=== PATIENT | female | born 1995 | race Two or more races ===

== ENCOUNTER 2016-12-01 00:18 | Emergency (ER) | payer SELFPAY ==
[~2016-12-01] VITALS: Ht 157.5 cm; Wt 74.9 kg
[2016-12-01 00:22] VITALS: BP 123/83
== END 2016-12-01 03:26 | disposition home or self-care (01) ==
LOC: ED 03:02
DX: H10.32 Unspecified acute conjunctivitis, left eye (principal); J02.9 Acute pharyngitis, unspecified
CPT/HCPCS: 99283

== ENCOUNTER 2017-05-29 18:58 | Emergency (ER) | payer SELFPAY ==
[~2017-05-29] VITALS: Ht 157.5 cm; Wt 74.1 kg
[2017-05-29 19:03] VITALS: BP 132/84
== END 2017-05-29 19:55 | disposition home or self-care (01) ==
LOC: ED 19:35
DX: K08.89 Other specified disorders of teeth and supporting structures (principal)
CPT/HCPCS: 99283

== ENCOUNTER 2017-11-21 14:02 | Inpatient (IN) | payer OTHER ==
[~2017-11-21] VITALS: Ht 157.5 cm; Wt 90.1 kg
[2017-11-21] MEDS ORDERED: CLINDAMYCIN PMX 600MG/50ML 50 ML IV ONE (15:00)
[2017-11-21] MEDS ORDERED: SODIUM CHLORIDE 0.9% 1,000ML IVBOLUS ONE (15:00)
[2017-11-21] MEDS ORDERED: SODIUM CHLORIDE FLUSH 10ML SYR IVF ONE (15:00)
[2017-11-21] MEDS ORDERED: ONDANSETRON 2MG/ML, 2ML IVPush ONE (15:00)
[2017-11-21 15:07] LABS: BASOPHILS # (AUTO) 0.02 x10^3/uL (0-0.1); BASOPHILS % (AUTO) 0 % (0-1); EOSINOPHILS # (AUTO) 0.05 x10^3/uL (0-0.4); EOSINOPHILS % (AUTO) 1 % (1-7); LYMPHOCYTES # (AUTO) 1.39 x10^3/uL (1-3.4); LYMPHOCYTES % (AUTO) 12 % (22-44); MD NO; MEAN CORPUSCULAR VOLUME 85.3 fL (80-100); MEAN PLATELET VOLUME 8.6 fL (7.4-10.4); MONOCYTES % (AUTO) 5 % (2-9); NEUTROPHILS # (AUTO) 9.31 x10^3/uL (1.8-6.8); NEUTROPHILS % (AUTO) 82 % (42-75); PLATELET COUNT 280 x10^3/uL (130-400); RED BLOOD COUNT 4.54 x10^6/uL (3.82-5.3); RED CELL DISTRIBUTION WIDTH 13.2 % (9.6-15.2)
[2017-11-21 15:18] LABS: ALBUMIN 3.7 g/dL (3.4-5.0); ANION GAP 6 mmol/L (5-15); CALCIUM 8.9 mg/dL (8.5-10.1); CHLORIDE 106 mmol/L (98-107); CREATININE 0.63 mg/dL (0.55-1.02)
[2017-11-21] MEDS ORDERED: OMNIPAQUE 350 MG/ML, 100ML BOTTLE ONE (15:50)
[2017-11-21] MEDS ORDERED: ONDANSETRON 2MG/ML, 2ML ONE (16:29)
[2017-11-21] MEDS ORDERED: HYDROmorphone 1 MG/ML, 1ML ONE (16:30)
[2017-11-21] MEDS ORDERED: CLINDAMYCIN PMX 600MG/50ML 50 ML ONE (16:30)
[2017-11-21] MEDS: HYDROmorphone 1 MG/ML, 1ML IVPush PRN ×2 (16:37→16:53)
[2017-11-21] MEDS ORDERED: BISACODYL 10 MG SUPP PR PRN (17:00)
[2017-11-21] MEDS ORDERED: ONDANSETRON 2MG/ML, 2ML IVPush PRN (17:00)
[2017-11-21] MEDS: CLINDAMYCIN PMX 600MG/50ML 50 ML IV SCH (17:00)
[2017-11-21] MEDS ORDERED: DOCUSATE 100 MG CAPSULE PO PRN (17:00)
[2017-11-21] MEDS ORDERED: ACETAMINOPHEN 325 MG TABLET PO PRN (17:00)
[2017-11-21] MEDS ORDERED: ENALAPRILAT 1.25 MG/ML, 2ML IVPush PRN (17:00)
[2017-11-21] MEDS ORDERED: SODIUM CHLORIDE FLUSH 10ML SYR IVF PRN (17:00)
[2017-11-21] MEDS ORDERED: POLYETHYLENE GLYCOL 17 GM PACKET PO PRN (17:00)
[2017-11-21] MEDS ORDERED: morphine SULFATE 10 MG/ML, 1ML ONE (17:27)
[2017-11-21] MEDS: morphine SULFATE 10 MG/ML, 1ML IVPush PRN (17:30)
[2017-11-21 18:58] VITALS: BP 121/71
[2017-11-21 19:00] VITALS: BP 131/84
[2017-11-21] MEDS: SODIUM CHLORIDE 0.9% 1,000 ML IV SCH (20:40)
[2017-11-21] MEDS: HYDROcodone/APAP 5/325 TABLET PO PRN ×2 (20:40→21:06)
[2017-11-21 21:55] VITALS: BP 112/73
[2017-11-22] MEDS: CLINDAMYCIN PMX 600MG/50ML 50 ML IV SCH ×3 (00:50→16:55)
[2017-11-22] MEDS: SODIUM CHLORIDE 0.9% 1,000 ML IV SCH ×3 (00:50→22:47)
[2017-11-22 00:54] VITALS: BP 114/65
[2017-11-22 05:36] LABS: BASOPHILS # (AUTO) 0.03 x10^3/uL (0-0.1); BASOPHILS % (AUTO) 0 % (0-1); EOSINOPHILS % (AUTO) 1 % (1-7); LYMPHOCYTES # (AUTO) 2.41 x10^3/uL (1-3.4); LYMPHOCYTES % (AUTO) 27 % (22-44); MD NO; MEAN CORPUSCULAR HEMOGLOBIN 29.1 pg (27.0-34.8); MEAN CORPUSCULAR HGB CONC 34.1 g/dL (32.4-35.8); MEAN CORPUSCULAR VOLUME 85.4 fL (80-100); MEAN PLATELET VOLUME 8.5 fL (7.4-10.4); MONOCYTES # (AUTO) 0.87 x10^3/uL (0.2-0.8); MONOCYTES % (AUTO) 10 % (2-9); NEUTROPHILS # (AUTO) 5.57 x10^3/uL (1.8-6.8); NEUTROPHILS % (AUTO) 62 % (42-75); PLATELET COUNT 252 x10^3/uL (130-400); RED BLOOD COUNT 3.68 x10^6/uL (3.82-5.3); RED CELL DISTRIBUTION WIDTH 12.7 % (9.6-15.2)
[2017-11-22 05:43] LABS: ANION GAP 7 mmol/L (5-15); CHLORIDE 106 mmol/L (98-107)
[2017-11-22 05:45] LABS: CREATININE 0.56 mg/dL (0.55-1.02)
[2017-11-22 07:29] VITALS: BP 100/63
[2017-11-22] MEDS: morphine SULFATE 10 MG/ML, 1ML IVPush PRN (07:37)
[2017-11-22] MEDS ORDERED: LIDOCAINE 1%, 20ML ONE (11:06)
[2017-11-22] MEDS ORDERED: EPINEPHRINE 1 MG/ML, 1ML ONE (11:06)
[2017-11-22] MEDS ORDERED: MIDAZOLAM 1 MG/ML, 2ML ONE (11:09)
[2017-11-22] MEDS ORDERED: FENTANYL PF 100 MCG/2ML ONE ×2 (11:10→12:00)
[2017-11-22] MEDS ORDERED: LIDOCAINE-MPF 2% ,5ML ONE ×2 (11:10→11:36)
[2017-11-22] MEDS ORDERED: ONDANSETRON 2MG/ML, 2ML ONE ×2 (11:16→11:36)
[2017-11-22] MEDS ORDERED: SUCCINYLCHOLINE 20 MG/ML, 10ML ONE (11:16)
[2017-11-22] MEDS ORDERED: DEXAMETHASONE 4 MG/ML, 1ML ONE ×2 (11:16→11:36)
[2017-11-22] MEDS ORDERED: ROCURONIUM 10 MG/ML,10ML ONE (11:16)
[2017-11-22] MEDS ORDERED: DIAZEPAM 5 MG/ML, 2ML IVPush PRN (11:30)
[2017-11-22] MEDS ORDERED: OXYcodone 5 MG/5 ML ORAL.SOL UDC PO PRN (11:30)
[2017-11-22] MEDS ORDERED: LIDOCAINE 1%-EPI 1:100K, 20ML INFIL ONE (11:30)
[2017-11-22] MEDS ORDERED: morphine SULFATE 10 MG/ML, 1ML IV PRN (11:30)
[2017-11-22] MEDS ORDERED: ONDANSETRON 2MG/ML, 2ML IVPush PRN (11:30)
[2017-11-22] MEDS ORDERED: MIDAZOLAM 1 MG/ML, 2ML IV PRN (11:30)
[2017-11-22] MEDS ORDERED: ACETAMINOPHEN 325 MG TABLET PO PRN (11:30)
[2017-11-22] MEDS ORDERED: PROMETHAZINE 25 MG/ML, 1ML IV PRN (11:30)
[2017-11-22] MEDS ORDERED: MEPERIDINE/PF 25MG/0.5ML IVPush PRN (11:30)
[2017-11-22] MEDS ORDERED: FENTANYL PF 100 MCG/2ML IV PRN (11:30)
[2017-11-22] MEDS ORDERED: hydrALAzine 20 MG/ML, 1ML IV PRN (11:30)
[2017-11-22] MEDS ORDERED: LABETALOL 5MG/ML, 20ML IV PRN (11:30)
[2017-11-22] MEDS ORDERED: ALBUTEROL/IPRATROPIUM 2.5MG/0.5MG, 3 ML NPPB PRN (11:30)
[2017-11-22] MEDS ORDERED: METOCLOPRAMIDE 5 MG/ML, 2ML IV PRN (11:30)
[2017-11-22] MEDS ORDERED: PROPOFOL 10 MG/ML, 20ML ONE (11:36)
[2017-11-22] MEDS ORDERED: CEFAZOLIN 1,000 MG ONE (11:36)
[2017-11-22] MEDS ORDERED: OXYcodone 5 MG/5 ML ORAL.SOL UDC ONE (11:59)
[2017-11-22 12:51] VITALS: BP 113/70
[2017-11-22] MEDS: HYDROcodone/APAP 5/325 TABLET PO PRN (16:01)
[2017-11-22 20:17] VITALS: BP 139/76
[2017-11-22] MEDS: CHLORHEXIDINE 15 ML BOTTLE MM SCH (20:29)
[2017-11-23] MEDS: CLINDAMYCIN PMX 600MG/50ML 50 ML IV SCH ×2 (01:25→08:41)
[2017-11-23 02:01] VITALS: BP 101/57
[2017-11-23 06:15] LABS: BASOPHILS # (AUTO) 0.02 x10^3/uL (0-0.1); BASOPHILS % (AUTO) 0 % (0-1); EOSINOPHILS % (AUTO) 0 % (1-7); LYMPHOCYTES # (AUTO) 1.13 x10^3/uL (1-3.4); LYMPHOCYTES % (AUTO) 14 % (22-44); MD NO; MEAN CORPUSCULAR HEMOGLOBIN 29.3 pg (27.0-34.8); MEAN CORPUSCULAR HGB CONC 34.1 g/dL (32.4-35.8); MEAN CORPUSCULAR VOLUME 85.9 fL (80-100); MEAN PLATELET VOLUME 8.3 fL (7.4-10.4); MONOCYTES # (AUTO) 0.68 x10^3/uL (0.2-0.8); MONOCYTES % (AUTO) 9 % (2-9); NEUTROPHILS # (AUTO) 6.18 x10^3/uL (1.8-6.8); NEUTROPHILS % (AUTO) 77 % (42-75); PLATELET COUNT 282 x10^3/uL (130-400); RED BLOOD COUNT 3.57 x10^6/uL (3.82-5.3); RED CELL DISTRIBUTION WIDTH 12.8 % (9.6-15.2)
[2017-11-23 06:22] LABS: CHLORIDE 104 mmol/L (98-107)
[2017-11-23 06:28] LABS: ANION GAP 9 mmol/L (5-15); CALCIUM 8.5 mg/dL (8.5-10.1); CREATININE 0.53 mg/dL (0.55-1.02)
[2017-11-23 06:58] VITALS: BP 106/65
[2017-11-23] MEDS: SODIUM CHLORIDE 0.9% 1,000 ML IV SCH (08:41)
[2017-11-23] MEDS: CHLORHEXIDINE 15 ML BOTTLE MM SCH (08:41)
[2017-11-23] MEDS ORDERED: CHLO473M MM (09:09)
[2017-11-23] MEDS ORDERED: HYDR-3240 PO (09:09)
[2017-11-23] MEDS ORDERED: CLIN300C8 PO (09:09)
== END 2017-11-23 10:49 | disposition home or self-care (01) | DRG 137 ==
LOC: ED 15:02 → EDIP 16:47 → 4NOR 18:44 → DCLOUNGE 11-23 10:35
PROVIDERS: ADMIT Internal Medicine; ATTEND Internal Medicine
PROC: 0W950ZZ Drainage of Lower Jaw, Open Approach (ICD-10-PCS; 2017-11-22)
PROC: 0CTX0Z0 Resection of Lower Tooth, Single, Open Approach (ICD-10-PCS; 2017-11-22)
PROC: 0CDXXZ0 Extraction of Lower Tooth, Single, External Approach (ICD-10-PCS; principal; 2017-11-22 11:00)
DX: K04.7 Periapical abscess without sinus (principal); L02.01 Cutaneous abscess of face; L03.221 Cellulitis of neck; L03.211 Cellulitis of face; D64.9 Anemia, unspecified; I10 Essential (primary) hypertension; F17.210 Nicotine dependence, cigarettes, uncomplicated; R00.0 Tachycardia, unspecified; K01.1 Impacted teeth; K02.9 Dental caries, unspecified; M27.2 Inflammatory conditions of jaws; Z83.3 Family history of diabetes mellitus
CPT/HCPCS: 36415; 70100; 70491; 80048; 82040; 84703; 85025; 87040; 96374; 96375; J0171; J0690; J1100; J1170; J2250; J2405; J2704; J3010; J3490; Q9967; J0330; J2270; J7030

== ENCOUNTER 2018-06-07 16:36 | Emergency (ER) | payer OTHER ==
[~2018-06-07] VITALS: Ht 157.5 cm; Wt 76.4 kg
[~2018-06-07 16:36] MED LIST: CHLO473M MM; CLIN300C8 PO; HYDR-3240 PO
[2018-06-07 17:02] LABS: BASOPHILS # (AUTO) 0.05 x10^3/uL (0-0.1); BASOPHILS % (AUTO) 1 % (0-1); EOSINOPHILS # (AUTO) 0.28 x10^3/uL (0-0.4); EOSINOPHILS % (AUTO) 4 % (1-7); LYMPHOCYTES % (AUTO) 29 % (22-44); MD NO; MEAN CORPUSCULAR HEMOGLOBIN 28.7 pg (27.0-34.8); MEAN CORPUSCULAR HGB CONC 33.4 g/dL (32.4-35.8); MEAN PLATELET VOLUME 8.7 fL (7.4-10.4); MONOCYTES # (AUTO) 0.59 x10^3/uL (0.2-0.8); MONOCYTES % (AUTO) 8 % (2-9); NEUTROPHILS # (AUTO) 4.54 x10^3/uL (1.8-6.8); NEUTROPHILS % (AUTO) 59 % (42-75); PLATELET COUNT 302 x10^3/uL (130-400); RED BLOOD COUNT 4.56 x10^6/uL (3.82-5.3); RED CELL DISTRIBUTION WIDTH 13.1 % (9.6-15.2)
[2018-06-07 17:15] LABS: ALANINE AMINOTRANSFERASE 22 U/L (12-78); ANION GAP 9 mmol/L (5-15); CALCIUM 8.6 mg/dL (8.5-10.1); CHLORIDE 106 mmol/L (98-107); CREATININE 0.72 mg/dL (0.55-1.02)
[2018-06-07 17:19] LABS: ALKALINE PHOSPHATASE 101 U/L (45-117); BILIRUBIN,TOTAL 0.3 mg/dL (0.2-1.0); TOTAL PROTEIN 8.2 g/dL (6.4-8.2)
[2018-06-07 17:35] LABS: MICROSCOPIC INDICATED
[2018-06-07 17:38] LABS: CULTURE INDICATED? YES
[2018-06-07] MEDS ORDERED: CEFTRIAXONE 1,000 MG in SODIUM CHLORIDE 0.9% 50 ML IV ONE (18:30)
[2018-06-07 18:33] VITALS: BP 120/80
[2018-06-07] MEDS ORDERED: CEFTRIAXONE PMX 1GM/50ML 50 ML ONE (18:35)
[2018-06-07] MEDS ORDERED: SODIUM CHLORIDE 0.9% 1,000ML IVBOLUS ONE (19:00)
[2018-06-07] MEDS ORDERED: SODIUM CHLORIDE FLUSH 10ML SYR IVF ONE (19:00)
== END 2018-06-07 19:31 | disposition home or self-care (01) ==
LOC: ED 19:10
DX: N30.00 Acute cystitis without hematuria (principal)
CPT/HCPCS: 36415; 76830; 80053; 81001; 84703; 85025; 87086; 96365; 99285; J0696; J7030